=== PATIENT | female | born 1995 ===

== ENCOUNTER 2024-09-18 08:20 | Emergency (ER) | payer MEDICAID, SELFPAY ==
[2024-09-18 08:23] VITALS: BP 132/82; PULSE 76; O2SAT 99
[2024-09-18 08:31] VITALS: BP 120/72; PULSE 78; RESP 18; TEMP 36.5; O2SAT 100; BMI 23.2
--- NOTE | 2024-09-18 08:48 | ED.ABDPAIN ---
HPI - Abdominal Pain General Chief Complaint: Abdominal Pain Stated Complaint: N/V from shelter Time Seen by Provider: 09/18/24 08:27 Source: patient and EMS Mode of arrival: EMS Limitations: no limitations History of Present Illness ED Provider: Meagan Rose PA-C HPI narrative: 29-year-old female with history of substance use disorder now sober for the last 2 months, history of endometriosis presents to the ER for evaluation of lower abdominal pain and cramping that started today, the 1st day of her menstrual cycle. She reports she usually does not get this pain with her. Because she was used to taking heroin, she is now sober for the last 2 months in his been having increased endometriosis pain. She states they do not give her any medication at her shelter so she has not taken anything. She reports the pain is cramping in nature, in the middle of her lower abdomen. It is not worse on 1 side more than the other. She is not sexually active. No urinary symptoms or vaginal discharge. Vaginal bleeding is mild at this time. MD elicited complaint: abdominal pain Pertinent past history: other (Psoriasis) Onset (ago): hour(s) Pain Consistency: constant Location: suprapubic and pelvis Severity: severe Pain scale (0-10): 9 Quality: cramping Radiation: none Migration to: no migration Exacerbating factors: nothing Relieving factors: nothing Context: history of similar episodes Associated symptoms: denies other symptoms Related Data Date of Last Menstrual Period: 09/18/24 Patient : No Previous Rx's ?Medication ?Instructions ?Recorded ketorolac 10 mg tablet 10 mg PO Q8H PRN pain 3 days #9 09/18/24 tabs Allergies Allergy/AdvReac Type Severity Reaction Status Date / Time No Known Allergies Allergy Verified 09/18/24 08:33 Review of Systems Review of Systems Yes all other systems are reviewed and are negative PMFSH Past Medical History Date of Last Menstrual Period: 09/18/24 Social History Social History Alcohol intake: former Smoked in Last 30 Days: Yes Use of substances other than those prescribed or required for medical reasons: No Advance Directives: No Advance Directives Information Provided: Yes Patient : No Physical Exam ED Vital Signs: Vital Signs - 24 hr 09/18/24 08:31 09/18/24 13:32 Temperature 97.7 F 98.0 F Pulse Rate 78 74 Respiratory Rate 18 18 Blood Pressure 120/72 103/46 L Pulse Oximetry 100 98 Oxygen Delivery Method Room Air Room Air BMI result Body Mass Index 23.2 Appearance: Alert. Oriented X3. Appears uncomfortable Head: normocephalic, atraumatic. Eyes: Pupils equal, round and reactive to light. ENT: Pharynx normal. No tonsillar swelling or exudate. Neck: Normal inspection. Neck supple. CVS: Normal heart rate and rhythm. Pulses normal. Respiratory: No respiratory distress. Breath sounds normal. Abdomen: Soft with mild suprapubic tenderness to deep palpation only, no rebound or guarding. Normal active +BS x4 Skin: Skin warm and dry. Normal skin color. Normal skin turgor. No rashes. Extremities: No lower extremity edema. No joint swelling. Neuro/psych: Oriented X 3. No motor deficit. No sensory deficit. CN II-XII intact. Normal speech and cognition. Course Reevaluation(s) Reevaluation #1: [facility] shore working supervisor Pham Leonard called and stated the patient is being discharged from the program for vaping in her room. they were in the process of discharging her today when she came to the hospital for medical evaluation for her pain. advised the shore working supervisor to tell the patient directly. plan for discharge from the ER Time: 13:20 Medical Decision Making Medical Decision Making [facility] Narrative: 29-year-old female with history of endometriosis presents to the ER for evaluation of pelvic pain after she got her menstrual cycle today. She reports cramping like pain that she usually does not feel because she has been on s heroin. However she has been sober for last 2 months and has been having increased pain at the start of her menstrual cycle. She denies any urinary symptoms. No vaginal discharge. No nausea, vomiting, diarrhea. No other abdominal pain. Lab workup today is unremarkable Patient given IM Toradol and Tylenol with significant improvement in her pain. Urinalysis negative for infection and . She is stable for discharge back to the [facility] where she lives Differential Diagnosis Differential Diagnoses: The differential diagnosis associated with the presentation includes Menstrual cramps, endometriosis, UTI, STI, ovarian cyst, ovarian torsion, TOA Lab Data [facility] Lab Attestation statement: I reviewed the patient's lab results. 09/18/24 08:46 09/18/24 08:46 Labs: Lab Results 09/18/24 09/18/24 Range/Units 08:46 12:46 WBC 5.7 (4.8-10.8) X10*3/uL RBC 4.23 (4.20-5.50) X10*6/uL Hgb 12.6 (12.0-16.0) g/dl Hct 36.4 L (37.0-47.0) % MCV 86.1 (80.0-98.0) fL MCH 29.8 (27.0-33.0) pg MCHC 34.6 (31.0-35.0) g/dl RDW 14.1 (11.0-16.0) % Plt Count 171 (160-400) X10*3/uL MPV 10.0 (9.4-12.3) fL Immature Gran % (Auto) 0.5 H (0.0-0.4) % Neut % (Auto) 67.5 (45-73) % Lymph % (Auto) 18.1 L (20-40) % Hidalgo % (Auto) 8.3 (2-11) % Eos % (Auto) 5.1 H (0-4) % Baso % (Auto) 0.5 (0-2) % Lymph # (Auto) 1.0 L (1.2-4.9) X10*3/uL Hidalgo # (Auto) 0.5 (0.1-1.2) X10*3/uL Eos # (Auto) 0.3 (0.0-0.4) X10*3/uL Baso # (Auto) 0.0 (0.0-0.2) X10*3/uL Abs Immat Gran (auto) 0.03 (0.00-0.03) X10*3/uL Absolute Neuts (auto) 3.8 (2.0-8.3) x10*3/uL Absolute Nucleated RBC 0.000 (0.0-0.012) X10*3/uL Nucleated RBC % (auto) 0.0 (0.0-0.2) /100WBC Sodium 140 (135-145) mmol/L Potassium 3.8 (3.3-5.1) mmol/L Chloride 109 H (96-108) mmol/L Carbon Dioxide 26 (22-29) mmol/L Anion Gap 9 L (12-20) BUN 12 (9-16) mg/dL Creatinine 0.83 (0.5-1.4) mg/dL Estim Creat Clear Calc 83.5 Estimated GFR > 60 Random Glucose 104 (60-115) mg/dL Calcium 8.9 (8.4-10.2) mg/dL Magnesium 1.7 (1.6-2.6) mg/dL Total Bilirubin 0.2 (0.0-1.0) mg/dL Direct Bilirubin < 0.2 (0.0-0.5) mg/dL AST 19 (5-31) U/L ALT 22 (0-31) U/L Alkaline Phosphatase 41 (39-117) U/L Total Protein 6.2 L (6.5-8.0) g/dL Albumin 3.7 (3.5-5.0) g/dL Lipase 11 (8-78) U/L Urine Color Yellow Urine Appearance Clear Urine pH 6.5 (5.0-9.0) Ur Specific Ute >= 1.030 H (1.005-1.025) Urine Protein Trace (Neg-Trace) mg/dL Urine Glucose (UA) Negative (Negative) mg/dL Urine Ketones Trace (Negative) mg/dL Urine Blood Large (3+) H (Negative) Urine Nitrite Negative (Negative) Ur Leukocyte Esterase Negative (Negative) Urine RBC >20 H (0-2) /HPF Urine WBC 0-5 (0-5) /HPF Ur Squamous Epith Cells 3-5 (0-2) /HPF Urine Bacteria Trace (None Seen) Hyaline Casts 0-2 (0-2) /LPF Urine Test NEGATIVE (NEGATIVE) Urine Opiates Screen Not Detected (Not Detect) Ur Buprenorphine Scrn Positive H (Not Detect) ng/mL Ur Oxycodone Screen Not Detected (Not Detect) ng/mL Urine Methadone Screen Not Detected (Not Detect) ng/mL Urine Fentanyl Screen Not Detected (Not Detect) Ur Barbiturates Screen Not Detected (Not Detect) Ur Phencyclidine Scrn Not Detected (Not Detect) Ur Amphetamines Screen Not Detected (Not Detect) U Benzodiazepines Scrn Not Detected (Not Detect) Urine Cocaine Screen Not Detected (Not Detect) U Marijuana (THC) Screen Not Detected (Not Detect) Independent Historian Clinical information obtained from an independent historian. History obtained from or confirmed by: EMS Tests considered The following testing was considered but not selected: pelvic U/S considered Prescription Management I considered prescription management with: Pain Medication and Antibiotic Chronic Conditions Patient?s care impacted by: Other (endometriosis, opioid use disorder) Social Determinants Patient?s care significantly limited by Social Determinants of Health including: Problems related to primary support group and Other Social Determinant of Health Medications Administered Discontinued Medications Generic Name Dose Route Start Last Admin Trade Name Freq PRN Reason Stop Dose Admin Acetaminophen 975 mg 09/18/24 08:36 09/18/24 08:55 Acetaminophen 325 Mg Tablet PO 09/18/24 08:37 975 mg ONCE ONE Administration Ketorolac Tromethamine 30 mg 09/18/24 08:36 09/18/24 08:55 Ketorolac Tromethamine 30 Mg/Ml Vial IM 09/18/24 08:37 30 mg ONCE ONE Administration Critical Care Time Critical Care Time Critical Care Time: No Discharge Plan Discharge Clinical Impression: Endometriosis Patient Disposition: Home, Self-Care Instructions: Endometriosis (ED), Pelvic Pain in Women (ED) Additional Instructions: Your lab workup and urine tests were unremarkable. Take the prescribed medication as needed for pain. Take it with food. Also recommend Tylenol 1000 mg every 6-8 hours for pain. Follow-up with your OBGYN. If you not have 1, you can try calling Dr. Russell's office to arrange an appointment, name and number below. If you develop new or worsening symptoms call 911 or come back to the ER for further evaluation. Prescriptions: New ketorolac 10 mg tablet 10 mg PO Q8H PRN (Reason: pain) 3 Days Qty: 9 0RF Referrals: [facility] [Primary Care Provider] - Yehuda Russell MD [Physician] - Interventions: ED Discharge Assessment Last Done: 09/18/24 13:32 Discharge Date/Time: 09/18/24 13:32 Print Language: Hungarian
[2024-09-18 08:50] LABS: MANUAL DIFF FLAG NO
[2024-09-18 08:54] LABS: Basophils Percent Auto 0.5 % (0-2); Eosinophils Absolute Auto 0.3 X10*3/uL (0.0-0.4); Eosinophils Percent Auto 5.1 % (0-4); Hematocrit 36.4 % (37.0-47.0); Hemoglobin 12.6 g/dl (12.0-16.0); Imm Gran Abs Auto 0.03 X10*3/uL (0.00-0.03); Imm Gran Pct Auto 0.5 % (0.0-0.4); Lymphocytes Percent Auto 18.1 % (20-40); Mean Corpuscular HGB Conc 34.6 g/dl (31.0-35.0); Mean Corpuscular Hemoglobin 29.8 pg (27.0-33.0); Mean Corpuscular Volume 86.1 fL (80.0-98.0); Monocytes Absolute Auto 0.5 X10*3/uL (0.1-1.2); Monocytes Percent Auto 8.3 % (2-11); Neutrophils Absolute Auto 3.8 x10*3/uL (2.0-8.3); Neutrophils Percent Auto 67.5 % (45-73); Platelet Count 171 X10*3/uL (160-400); Red Blood Count 4.23 X10*6/uL (4.20-5.50); Red Cell Distribution Width 14.1 % (11.0-16.0); White Blood Count 5.7 X10*3/uL (4.8-10.8)
[2024-09-18] MEDS: Ketorolac Tromethamine 30 MG/ML VIAL IM (08:55)
[2024-09-18] MEDS: Acetaminophen 325 MG TABLET 975 MG PO (08:55)
--- NOTE | 2024-09-18 08:57 | PC.NURSE ---
pt a&ox3, vss, pt c.o 07/04 low abd pain, pt medicated per order, call valadez within reach, will continue to monitor
[2024-09-18 09:05] LABS: Alanine Aminotransferase 22 U/L (0-31); Albumin Level 3.7 g/dL (3.5-5.0); Alkaline Phosphatase 41 U/L (39-117); Anion Gap 9 (12-20); Aspartate Amino Transferase 19 U/L (5-31); Bilirubin Direct < 0.2 mg/dL (0.0-0.5); Bilirubin Total 0.2 mg/dL (0.0-1.0); Blood Urea Nitrogen 12 mg/dL (9-16); Calcium 8.9 mg/dL (8.4-10.2); Carbon Dioxide 26 mmol/L (22-29); Chloride 109 mmol/L (96-108); Creatinine Clr Calc Pharmacy 83.5; Estimated Glomerular Filt Rate > 60; Glucose Random 104 mg/dL (60-115); Lipase 11 U/L (8-78); Magnesium 1.7 mg/dL (1.6-2.6); Potassium 3.8 mmol/L (3.3-5.1); Sodium 140 mmol/L (135-145); Total Protein 6.2 g/dL (6.5-8.0)
[2024-09-18 12:54] LABS: UPreg QC Valid YES; Urine Pregnancy NEGATIVE (NEGATIVE)
[2024-09-18 13:03] LABS: Amphetamine Screen Urine Not Detected (Not Detect); Barbiturates, Urine Not Detected (Not Detect); Benzodiazepines Screen Urine Not Detected (Not Detect); Buprenorphine Scr Positive (Not Detect); Cannabinoid Screen Urine Not Detected (Not Detect); Cocaine Screen Urine Not Detected (Not Detect); Fentanyl, urine Not Detected (Not Detect); Methadone Screen, Urine Not Detected (Not Detect); Opiate Screen Urine Not Detected (Not Detect); Oxycodone Screen Urine Not Detected (Not Detect); Phencyclidine Screen Urine Not Detected (Not Detect)
[2024-09-18 13:04] LABS: Appearance Urine Clear; Color Urine Yellow; Glucose Urine UA Negative (Negative); Leukocyte Esterase Urine Negative (Negative); Nitrite Urine Negative (Negative); PH 6.5 (5.0-9.0); Specific Gravity - Urine >= 1.030 (1.005-1.025); UMIC TRIGGER UACC YES; Urine Blood Large (3+) (Negative); Urine Ketones Trace mg/dL (Negative); Urine Protein Trace mg/dL (Neg-Trace)
[2024-09-18 13:05] LABS: Bacteria Urine Trace (None Seen); Hyaline Casts Urine 0-2 /LPF (0-2); RBC Urine >20 /HPF (0-2); WBC Urine 0-5 /HPF (0-5)
--- NOTE | 2024-09-18 13:29 | PC.NURSE ---
[facility] called and stated the patient was being discharged from their program because she was caught vaping, they after school program assistant gave her phone number and extention to have the patient call her to tell her. the patient has been discharged from the ed and will go to [facility] to [facility] her belongings.
[2024-09-18 13:32] VITALS: BP 103/46; PULSE 74; RESP 18; TEMP 36.7; O2SAT 98
== END 2024-09-18 13:32 | disposition home or self-care (01) ==
PROVIDERS: Physician Assistant; Emergency Provider Emergency Medicine Emergency Medical Services
DX: N80.9 Endometriosis, unspecified (principal); R11.2 Nausea with vomiting, unspecified; R10.2 Pelvic and perineal pain; Z51.81 Encounter for therapeutic drug level monitoring; Z79.899 Other long term (current) drug therapy
CPT/HCPCS: 36415; 80048; 80076; 80307; 81001; 81003; 81025; 83690; 83735; 85025; 96372; 99284; J1885